=== PATIENT | female | born 1955 | race Caucasian/White ===

== ENCOUNTER 2017-02-05 11:20 | Emergency (ER) | payer OTHER, SELFPAY ==
[2017-02-05 12:12] LABS: BASOPHIL 0.1 % (0-2); EOSINOPHIL 0.8 % (0-5); HCT 38.1 % (37.0-47.0); HGB 12.7 g/dl (12.5-16.0); LYMPHOCYTE 7.3 % (15-48); MCH 28.9 pg (25.0-31.0); MCHC 33.3 g/dL (32.0-36.0); MCV 86.6 fL (78.0-100.0); MONOCYTE 6.8 % (0-12); MPV 10.7 fL (6.0-9.5); PLT 218 K/uL (150-400); RDW 13.7 % (11.5-14.0); WBC 13.9 K/uL (4.0-10.5)
[2017-02-05 12:34] LABS: ALBUMIN 4.3 g/dL (3.5-5.0); BILIRUBIN - TOTAL 0.7 mg/dL (0.1-1.0); CREATININE 1.2 mg/dL (0.5-1.0); GLOBULIN (CALCULATION) 3.4 g/dL (2.2-4.2); POTASSIUM 3.7 mmol/L (3.5-5.1); TOTAL PROTEIN 7.7 g/dL (6.4-8.3)
== END 2017-02-05 15:00 | disposition home or self-care (01) ==
LOC: FER 11:20
PROVIDERS: Internal Medicine
DX: R19.7 Diarrhea, unspecified (principal); K21.9 Gastro-esophageal reflux disease without esophagitis; E78.5 Hyperlipidemia, unspecified; Z87.19 Personal history of other diseases of the digestive system; Z91.041 Radiographic dye allergy status; Z79.899 Other long term (current) drug therapy
CPT/HCPCS: 36415; 80053; 85025